=== PATIENT | male | born 1945 | race Caucasian/White ===

== ENCOUNTER 2025-05-29 17:36 | Inpatient (IN) | payer MEDICARE, OTHER, SELFPAY ==
--- OUTSIDE RECORDS SUMMARY | 2017-11-18 04:10 | XMS_ITS | Continuity of Care Document ---
Author Organization [facility] Address [address] [place] [address] Phone Care Team Providers Care Chief Of Internal Medicine Name Role Phone Art PT,MPT,ATC, Chip Unavailable Unavai lable Procedures Procedure Date Therapeutic Exercise Therapeutic Activities Therapeutic Exercise Therapeutic Exercise Therapeutic Activities Therapeutic Exercise Therapeutic Activities Therapeutic Exercise Therapeutic Activities Therapeutic Exercise Therapeutic Activities Therapeutic Exercise Therapeutic Activities Therapeutic Exercise Therapeutic Exercise Therapeutic Activities PT Evaluation High Complexity 8 Therapeutic Exercise Neuromuscular Re-Ed Advance Directives Directive Yes / No Effective Date File Name No Information Encounters Encounter Description Practice Location Reason(s) For Visit Diagnoses Date Provider Providers Copied on Encounter [facility], [place], [place], [id number], tel:[phone] [place] No Information 8 [place], [place]. [facility], [place], [place], [id number], tel:[phone] [place] No Information 8 [place], [place]. [facility], [place], [place], [id number], [place] tel:[phone] [place] No Information 8 [place]. , [place], [place]. [facility], [place], [place], [address], [place] tel:[phone] [place] No Information 8 [place], [place]. [facility], [place], [place], [address], [place] tel:[phone] [place] No Information 8 [place], [place]. [facility], [place], [place], [address], [place] tel:[phone] [place] No Information 8 [place], [place]. [facility], [place], [place], [address], [place] tel:[phone] [place] No Information 8 [place], [place]. [facility], [place], [place], [address], [place] tel:[phone] [place] No Information 8 [place], [place]. [facility], [place], [place], [address], [place] tel:[phone] [place] No Information 8 Art [place]. , [place], [place]. [facility], [place], [place], [address], [place] tel:[phone] [place] No Information 8 Art [place]. , [place], [place]. [facility], [place], [place], [address], [place] tel:[phone] [place] Presence of left artificial knee jointPain in left kneeStiffness of left knee, not elsewhere classifiedOth symptoms and signs involving the musculoskeletal system 8 Art [place], . Family History Family Member Type Diagnosis Age At Onset No Information Payers Payer name Insurance type Covered republican ID Authorricharda tiludmila(s) [facility] [id number] Social History Type Description Quantity Date Captured Comments Sex Male Smoking Status No Information Chief Complaint And Reason For Visit No Information Reason For Referral Reason For Referral No Information History Of Present Illness Encounter Date Complaint History Of Prese nt Illness No Information Functional Status Date Functional Assessmen t No Information Instructions Date Instruction Additional Infor mation No Information Assessments Type Assessment Date No Information Patient Care Teams Name Effective Dates (start - stop) Status Members No Information
[2025-05-29] VITALS (8 sets, daily range): BP systolic 113–159; BP diastolic 55–88; PULSE 68–88; RESP 16–20; TEMP 36.9–37.4; O2SAT 93–99; BMI 29.8
--- NOTE | ~2025-05-29 | CT_ITS ---
EXAMINATION: CT cervical spine wo con DATE: 05/29/2025 18:25 INDICATION: Status post fall. Altered mental status. TECHNIQUE: Computed tomography (CT) of the cervical spine was performed without intravenous contrast. The dose-length product was 544 mGy-cm. COMPARISON: None FINDINGS: Craniovertebral junction is normal. Odontoid process within normal limits. No evidence for perched facet. Spinous processes are normal. There is degenerative disc disease with narrowing of the disc space at C4-5, C5-6 and C6- 7. Lung apices are unremarkable. There is multilevel facet hypertrophy. No acute fracture or traumatic malalignment. There is carotid atherosclerosis. IMPRESSION: 1. No acute abnormality of the cervical spine. Reviewed, dictated and finalized at location A.
--- NOTE | ~2025-05-29 | US_ITS ---
EXAMINATION: US carotid duplex BI DATE: 05/29/2025 22:50 CDT INDICATION: Altered mental status TECHNIQUE: Grayscale, color Doppler, and pulsed Doppler images of the cervical carotid arteries were obtained. The degree of vessel stenosis is placed in one of the following categories: normal, <50%, 50-69%, >=70% but less than near-occlusion, near-occlusion, or total occlusion. Note that percent stenosis relative to normal distal artery lumen diameter is indirectly measured from velocity measurements as described originally by Lonnie, et al. Radiology 2003; 229:340-346 and updated by Jose Angel Hdz et al STROKE 2012;43(3);915-921. COMPARISON: None. FINDINGS: There is moderate atherosclerosis of both carotid arteries. Peak systolic velocity (in cm/s) is detailed below RIGHT: Right common carotid artery (CCA): 118 cm/s. Right internal carotid artery (ICA) PSV: 142 cm/s. Right ICA end-diastolic velocity (EDV): 23 cm/s. Right ICA/CCA PSV ratio is 1.2. Right external carotid artery (ECA): 173cm/s. There is antegrade flow in the right vertebral artery LEFT: Left common carotid artery (CCA): 114 cm/s. Left internal carotid artery (ICA) PSV: 92 cm/s. Left ICA end-diastolic velocity (EDV): 25 cm/s. Left ICA/CCA PSV ratio is 0.8. Left external carotid artery (ECA): 199cm/s. There is antegrade flow in the left vertebral artery. IMPRESSION: 1. 50-69% stenosis in the right internal carotid artery by peak systolic velocity criteria. 2. Less than 50% stenosis in the left internal carotid artery. Elevated peak systolic velocity within the external carotid arteries bilaterally Reviewed, dictated and finalized at location A. IMPRESSION: 1. 50-69% stenosis in the right internal carotid artery by peak systolic veloci ty criteria. 2. Less than 50% stenosis in the left internal carotid artery. Elevated peak systolic velocity within the external carotid arteries bilaterall y
--- NOTE | ~2025-05-29 | MR_ITS ---
EXAMINATION: MR brain/brain stem wo/w con DATE: 05/30/2025 13:58 INDICATION: Altered mental status TECHNIQUE: Magnetic resonance imaging (MRI) of the brain and brainstem was performed without and with 20 mL Multihance intravenous contrast. Sequences included sagittal and axial T1-weighted SE, axial diffusion-weighted FS SE, axial 3D SWAN, axial T2-weighted FLAIR, and axial T2-weighted FSE. Postcontrast axial and coronal T1-weighted SE was obtained. Apparent diffusion coefficient (ADC) maps were created. COMPARISON: Head CT dated 05/29/2025 FINDINGS: There are no areas of restricted diffusion to suggest acute infarction. No intracranial hemorrhage or abnormal intracranial mass lesion. There are scattered areas of nonspecific increased T2-weighted signal intensity in the cerebral white matter, predominantly involving the deep and periventricular whi te matter. There are no intraparenchymal signal abnormalities seen on the other pulse sequences. The ventricles are symmetric and normal in size. There are no abnormal extra-axial fluid collections. Flow voids are seen in the cerebral arteries on the T2-weighted sequences consistent with their expected patency. Visualized orbits and soft tissues are unremarkable. Mild mucosal thickening the bilateral ethmoid sinuses. Changes of intraocular lens replacement. There are no areas of abnormal enhancement on the post contrast images. IMPRESSION: 1. Normal aging brain with moderate scattered calcific white matter T2 hyperintensity consistent with chronic small vessel ischemic disease. No acute intracranial process or abnormally enhancing brain lesions. Reviewed, dictated and finalized at location A. IMPRESSION: 1. Normal aging brain with moderate scattered calcific white matter T2 hyperint ensity consistent with chronic small vessel ischemic disease. No acute intracra nial process or abnormally enhancing brain lesions.
--- NOTE | ~2025-05-29 | CT_ITS ---
EXAMINATION: CT lumbar spine wo con DATE: 05/29/2025 19:11 INDICATION: Low back pain after fall TECHNIQUE: Computed tomography (CT) of the lumbar spine was performed without intravenous contrast. The dose-length product was 1423.69 mGy-cm. Automated exposure control and iterative reconstruction technique were employed. COMPARISON: None FINDINGS: There is severe lumbar spondylosis. Vertebral body heights are maintained. No acute fracture or traumatic malalignment. Lung bases unremarkable. No significant pleural or pericardial effusion. No significant vascular abnormality. Colonic diverticulosis. Mild levocurvature of the lumbar spine. IMPRESSION: 1. No acute abnormality of the lumbar spine. 2: Severe lumbar spondylosis with levocurvature. Reviewed, dictated and finalized at location A.
--- NOTE | ~2025-05-29 | CT_ITS ---
EXAMINATION: CT brain wo con DATE: 05/29/2025 18:25 INDICATION: Status post fall. Altered mental status. TECHNIQUE: Computed tomography (CT) of the head was performed without intravenous contrast. The dose-length product was 756.67 mGy-cm. Automated exposure control and iterative reconstruction technique were employed. COMPARISON: None FINDINGS: Brain parenchymal volume normal for age. There are scattered mild periventricular and subcortical white matter changes, most likely related to small vessel ischemic disease (microangiopathy). No acute infarction, hemorrhage, mass or mass effect. No ventriculomegaly or midline shift. There is intracranial atherosclerosis. Paranasal sinuses and mastoids are pneumatized. No depressed skull fractures. IMPRESSION: 1. No acute intracranial abnormality. Reviewed, dictated and finalized at location A.
--- NOTE | 2025-05-29 17:45 | ECG_ITS ---
Test Date: 2025-05-29 19:59:01 Measurements Intervals Seminary Rate: 80 P: 0 NH: 0 QRS: 20 QRSD: 97 T: 34 QT: 383 QTc: 442 Interpretive Statements SINUS RHYTHM WTH FREQUENT ATRIAL PREMATURE COMPLEXES BORDERLINE AV CONDUCTION DELAY EARLY PRECORDIAL R/S TRANSITION NONSPECIFIC T-WAVE ABNORMALITY- DIFFUSE LEADS BASELINE ARTIFACT- I, II, III, AVR, AVL, AVF, V1, V4-V6 ABNORMAL ECG No previous ECG available for comparison Electronically Signed On 05-29-2025 21:33:47 CDT by Juanjose Marroquin D.O.
[2025-05-29 17:57] LABS: Hematocrit 42.1 % (42.0-52.0); Hemoglobin 14.1 g/dL (14.0-18.0); Immature Granulocyte Percent A 0.3 % (0-0.5); Lymphocytes Absolute Auto 0.64 K/mm3 (0.9-3.2); Mean Corpuscular HGB Conc 33.5 g/dl (32-36); Mean Corpuscular Hemoglobin 31.2 pg (26-34); Mean Corpuscular Volume 93.1 fl (80-100); Nucleated Red Blood Cells Absolute Auto 0.000 K/mm3 (0.0-0.012); Nucleated Red Blood Cells Perc 0.0 % (0.0-0.2); Platelet Count Result 224 k/mm3 (150-375); Red Blood Count 4.52 M/mm3 (4.6-6.20); White Blood Count 14.6 K/mm3 (4.5-10.0)
[2025-05-29 18:04] LABS: Add Urine Microscopic? YES; Appearance Urine Cloudy (Clear); Glucose Urine UA Negative (Negative); Leukocyte Esterase Ur Negative LEU/UL (Negative); Nitrate Urine Negative (Negative); Non Pathogenic Casts 0-2; Specific Grav Ur 1.022 (1.001-1.035)
[2025-05-29 18:06] LABS: Alanine Aminotransferase 19 U/L (6-50); Albumin Level 4.4 g/dL (3.5-5.1); Alkaline Phosphatase 71 U/L (38-126); Anion Gap 12 mmol/L (4-12); Aspartate Amino Transferase 33 U/L (17-59); Bilirubin,Total 0.7 mg/dL (0.2-1.3); Blood Urea Nitrogen 13 mg/dL (9-20); Calcium 9.4 mg/dL (8.4-10.2); Carbon Dioxide 20 mmol/L (22-30); Chloride 104 mmol/L (98-107); Estimated CRCL calculation 70 ml/min; Estimated Glomerular Filt Rate > 60; Glucose 109 mg/dL (65-110); Potassium 3.9 mmol/L (3.4-5.0); Sodium 136 mmol/L (137-145); Total Protein 7.2 g/dL (6.3-8.2)
[2025-05-29 18:10] LABS: INR 1.1; Partial Thromboplastin Time 29.0 Seconds (22.3-36.8); Prothrombin Time 14.2 Seconds (11.1-14.7)
[2025-05-29] MEDS: SODIUM CHLORIDE 0.9% IV 1,000 ML 999 ML (18:47)
[2025-05-29] MEDS: MORPHINE SULFATE (*CRX) 4 MG/ML INJ IV PUSH ×2 (18:49→19:32)
[2025-05-29] MEDS: SODIUM CHLORIDE 0.9% IV 1,000 ML 999 ML IV CONT (18:50)
--- OUTSIDE RECORDS SUMMARY | 2025-05-29 18:50 | XMS_ITS | Encounter Summary ---
Author Organization [facility] Address 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
--- OUTSIDE RECORDS SUMMARY | 2025-05-29 18:50 | XMS_ITS | Clinical Summary ---
Author Organization [facility] Address [address] [place] [address] Care Team Providers Care Footwear Factory Worker Name Role Phone Isac Lawrence MD Primary Care Provider [phone] Allergies No known active allergies Medications aspirin 81 mg enteric coated tablet Take 325 mg by mouth daily Active pseudoephedrine (SUDAFED) 30 mg tabletIndicatio ns:Nasal Congestion Take 1 tablet (30 mg total) by mouth every 4 (four) hours as needed for congestion Active triamcinolone (KENALOG) 0.1 % ointment Apply topically 2 (two) times a day as needed for irritation 80 g 4 Active Additional Information Patient not taking.Reported on 01/15/2025 traZODone (DESYREL) 100 mg tablet TAKE 1 TABLET BY MOUTH AT BEDTIME NEEDED FOR SLEEP 90 tablet 3 4 Active Active Problems Problem Noted Date Diagnosed Date Chronic midline low back pain without sciatica 0 06/20/2024 Assessment & Plan (06/20/2024 2:09 PM CDT): Continue to lose weight. Exudative age-related macula r degeneration of left eye with active choroidal neovascularization 08/03/2022 Assessment & Plan (04/26/2023 10:50 AM CDT): Eccentric CNVM status post (s/p) inj X 3, now fibrotic Continue to monitor Assessment & Plan (01/25/2023 11:41 AM CDT): Eccentric CNVM status post (s/p) inj X 3, doing well now fibrotic without heme Observe Assessment & Plan (11/16/2022 11:45 AM GUN CLUB MANAGER): PEHCR OS Today HARRISON 3rd of 3 (last 10/05/22) RTC 6 weeks DFE Assessment & Plan (08/03/2022 12:06 PM CDT): His peripheral choroidal neovascularization secondary to AMD. His lesion is largely fibrotic but there is an active component with subretinal hemorrhage. We discussed the options which include observation, anti VEGF pharmacotherapy or thermal laser. I concerns with thermal laser of the large size of the lesion as well as the concern for developing central cystoid macular edema are causing hemorrhaging from the neovascular complexes. 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 06/01/2022 Assessment & Plan (04/26/2023 10:54 AM CDT): Recommend AREDS/AG Assessment & Plan (11/16/2022 11:43 AM GUN CLUB MANAGER): AREDS, AG Assessment & Plan (08/03/2022 11:30 AM CDT): Amsler monitoring AREDS micronutrient supplementation after discussing with PCP Has sDD OU and discussed functional effects on Va such as dark adaptation issues Assessment & Plan (06/01/2022 10:56 AM CDT): Amsler monitoring AREDS micronutrient supplementation after discussing with PCP Has sDD OU and discussed functional effects on Va such as dark adaptation issues Epiretinal membrane (ERM) of both eyes 2 Assessment & Plan (04/26/2023 10:50 AM CDT): No metamorphopsia, ok to monitor Assessment & Plan (11/16/2022 11:46 AM GUN CLUB MANAGER): Stable, monitor Assessment & Plan (08/03/2022 11:30 AM CDT): No metamorphopsia, follow Assessment & Plan (06/01/2022 10:34 AM CDT): No metamorphopsia, follow Subretinal hemorrhage of left eye 06/01/2022 Assessment & Plan (04/26/2023 11:06 AM CDT): Resolved heme (H)/o antiVEGF left eye (OS) for superior rectus (SR) fibrosis peripherally, no active lesions Discussed that he does not have active CNV; can follow with Dr De La Paz or local eye doctor Assessment & Plan (01/25/2023 11:41 AM CDT): Resolved OS Assessment & Plan (08/03/2022 11:35 AM CDT): Pt w/ peripheral subretinal hemorrhage (SRH). fluorescein angiography (FA) today shows neovascularization in this location. Given presence of macular degeneration and inconsistency w/ choroidal mass on previous B-scan, this may represent a PECHR picture. Though peripheral, given signs of activity, can consider anti-vegf left eye (OS) Assessment & Plan (06/01/2022 10:57 AM CDT): B scan and fundus features inconsistent with choroidal mass extensive peripheral drusen OU With active new heme on fundus exam but peripheral, can monitor with serial optos photos, can trial antiVEGF if enlarges. We have discussed that some patients with macular degeneration can get peripheral choroidal neovascularization. Fortunately he is showing some features of regression such as fibrosis within the lesion and the hemoglobin is a hernandez of some of the subretinal hemorrhage. As such, we can continue to monitor and only do anti VEGF pharmacotherapy if the lesion shows active components Encounter for screening colonoscopy 08/20/2020 Overview (08/20/2020): Added automatically from request for surgery [id number] Insomnia 07/09/2020 Assessment & Plan (06/20/2024 2:09 PM CDT): Stable on medications. History of colon polyps 07/09/2020 Hearing loss 01/30/2018 History of total knee replacement 11/29/2017 Ventricular premature beats 07/26/2016 Cerumen impaction 09/04/2013 Knee pain 05/10/2012 Encounters Date Type Department Care Team Description 05/14/2025 Telephone [facility] [address] [address] Isac Lawrence MD Hearing Loss from Last 3 Months Immunizations Immunization Administration Dates Next Due Hep A, Adult 03/16/2016 Surgical History Surgery Date Site/Laterality Comments REPLACEMENT TOTAL KNEE Left TONSILLECTOMY/ADENOIDECTOMY Medical History Medical History Date Comments Sleep difficulties Colon polyp Arthritis Family History Medical History Relation Name Comments Alcohol abuse Brother Family history of alcoholism - (Added by TW Conv) Coronary artery disease Father Heart attack Father Family history of myocardial infarction - (Added by TW Conv) Heart disease Father Family history of cardiac disorder - (Added by TW Conv) Heart failure Father Sudden Cardiac Father Arthritis Mother Family history of arthritis - (Added by TW Conv) Breast cancer Mother Cancer Mother Family history of malignant neoplasm - (Added by TW Conv) Relation Name Status Comments Brother Father Mother Social History Tobacco Use Types Packs/Day Years Used Date Smoking Tobacco: Never Smokeless Tobacco: Never Tobacco Cessation:Counseling Given: Not Answered Alcohol Use Standard Drinks/Week Comments Yes 21 (1 standard drink = 0.6 oz pu re alcohol) AUDIT-C Answer Date Recorded Q1: How often do you have a drink containing alc ohol? Never 10/14/2020 Average Number of Drinks Not on file 021 Frequency of Binge Drinking Not on file 02/2021 PHQ-2 Answer Date Recorded PHQ-2 Total Score (If total score is 3 or more points, staff should administer the PHQ-9) 0 12/19/2024 Sex and Gender Information Value Date Recorded Sex Assigned at Not on file Legal Sex Male 5:35 AM GUN CLUB MANAGER Gender Identity Not on file Sexual Orientation Not on file Obstetrics History Last Filed Vital Signs Vital Sign Reading Time Taken Comments Blood Pressure 122/84 01/15/2025 2:08 PM CDT Pulse 46 01/15/2025 2:08 PM CDT Temperature 36.1 C (96.9 F) 01/15/2025 2:08 PM CDT Respiratory Rate 20 01/15/2025 2:08 PM CDT Oxygen Saturation 96% 01/15/2025 2:08 PM CDT Inhaled Oxygen Concentration - - Weight 110.7 kg (244 lb) 01/15/2025 2:08 PM CDT Height 185.4 cm (6' 1) 01/15/2025 2:08 PM CDT Body Mass Index 32.19 01/15/2025 2:08 PM CDT Plan of Treatment Health Maintenance Due Date Last Done Comments DTaP/Tdap/Td Vaccine (1 - Tdap) 1958 Hepatitis B Screening 1965 Pneumococcal vaccine 65+ (1 of 1 - PCV) 1997 Zoster Vaccine (1 of 2) 1997 Influenza Vaccine (#1) 2025 Depression Screening 12/19/2025 12/19/2024, 07/07/20 21 Fall Risk Assessment 12/19/2025 12/19/2024, 07/07/2021, 10/14/2020 Well Visit 65+ 12/19/2025 12/19/2024, 10/11, 07/07/2021, Additional history exists Colon Cancer Screening-CT Colonography Discontinued 10/14/2020, 06/24/2015 Colon Cancer Screening-Colonoscopy Discontinued 10/14/2020, 06/24/2015 Colon Cancer Screening-DNA Stool Discontinued 10/14/19 21, 06/24/2015 Colon Cancer Screening-FIT Discontinued 10/14/2020, Colon Cancer Screening-FOBT Discontinued 10/14/2020, 0 06/24/2015 Colon Cancer Screening-Sigmoidoscopy Discontinued 10/14/2020, 06/24/2015 Colorectal Cancer Screening Discontinued Hepatitis C Screening Completed 12/14/2023 Procedures Procedure Name Priority Date/Time Associated Diagnosis Comments HEPATITIS C ANTIBODY Routine 12/14/2023 2:55 PM GUN CLUB MANAGER Chronic pain of both knees Obesity (BMI 30.0-34.9) Screening for prostate cancer Encounter for hepatitis C screening test for low risk patient COLONOSCOPY 10/14/2020 12:52 PM GUN CLUB MANAGER from Last 3 Months or Most Recently Relevant to Health Maintenance Results * Hepatitis C antibody Blood (12/14/2023 2:55 PM GUN CLUB MANAGER) Hep C Ab Non Reactive Non Reactive [facility] - 01 Comment: HCV antibody alone does not differentiate between previously resolved infection and active infection. Equivocal and Reactive HCV antibody results should be followed up with an HCV RNA test to support the diagnosis of active HCV infection. Blood 12/14/2023 2:55 PM GUN CLUB MANAGER 12/14/2023 Narrative [facility] - 12/15/2023 9:13 AM GUN CLUB MANAGER Performed at: [address] [id number] Card Tender: Ricci Smith PhD, Phone: [phone] us Isac Lawrence MD LAB MICROBIOLOGY - GENERAL OR DERABLES Final Result [facility] - * COLONOSCOPY (10/14/2020 12:52 PM GUN CLUB MANAGER) Anatomical Region Laterality Modality Other Narrative Procedure Note Brennan Canada MD PhD - 10/14/2020 12:52 PM [facility] Patient Name: Nick Vargas Procedure Date: 10/14/2020 12:52 PM Date of : 1945 Admit Type: Outpatient Age: 75 Gender: Male Attending MD: Brennan Canada MD,PHD Room: [facility] ENDOSCOPY ROOM 8 Note Status: Finalized Procedure: Colonoscopy Indications: High risk colon cancer surveillance: Personalhistory of colonic polyps, Last colonoscopy: June2015 Referring MD: Isac Lawrence M.D. Providers: Brennan Canada MD, PHD Medicines: Monitored Anesthesia Care Complications: No immediate complications. Estimated Blood Loss: Estimated blood loss: none. Procedure: Pre-Anesthesia Assessment: - Immediately prior to administration ofmedications, the patient was re-assessed for adequacy to receive sedatives. - The risks and benefits of the procedure and the sedation options and risks were discussed with the patient. All questions were answered and informed consent was obtained. The benefits, risks and alternatives of theprocedure and sedation were discussed and informed consent was obtained. All questions were answered. Please referto the signed informed consent document in the medical record. The scope was passed under direct vision.The CF [id number] endoscope was introduced throughthe anus and advanced to the cecum, identified by appendiceal orifice and ileocecal valve. The colonoscopy was performed without difficulty. The patient tolerated the procedure well. The quality of the bowel preparation was excellent. The quality ofthe bowel preparation was evaluated using the BBPS([place] Bowel Preparation Scale) with scores of: Right Colon= 3, Transverse Colon = 3 and Left Colon = 3 (entire mucosa seen well with no residual staining, small fragments of stool or opaque liquid). The total BBPS score equals 9. The bowel preparation used was polyethylene glycol (PEG). Bowel prep wasadministered using a split dose. Findings: The perianal and digital rectal examinations were normal. Multiple small and large-mouthed diverticula were found from cecum to sigmoid colon. The exam was otherwise without abnormality on direct and retroflexion views. Impression: - Diverticulosis from cecum to sigmoid colon. - The examination was otherwise normal on direct and retroflexion views. Recommendation: - High fiber diet. - Repeat colonoscopy in 10 years for surveillance. Attending Participation: I personally performed the entire procedure. Electronically signed by Brennan Canada MD. Brennan Canada MD, PHD 10/14/2020 1:34:18 PM Number of Addenda: 0 Note Initiated On: 10/14/2020 12:52 PM Recognized by the [employer] for promoting quality in endoscopy Brennan Canada MD PhD ENDOSCOPY PROCEDURES Mellissa l Result from Last 3 Months or Most Recently Relevant to Health Maintenance Insurance MEDICARE [facility] MEDICARE [facility] SUPPLEMENT [place] [id number] MEDICARE [facility] SUPPLEMENT [place] [id number] [facility] HMO/PPO Address: [address] [facility] [address] [place] [address] MEDICARE [facility] Address: [address] [address] [place] [address] [facility] H[facility]/PPO Address: [address] [address] Advance Directives For more information, please contact: [phone] * Full Code (Latest Code Status on File) Date Activated Date Inactivated Comments 10/14/2020 11:56 AM 10/14/2020 6:26 PM Care Teams Footwear Factory Worker Relationship Specialty Start Date End Date Isac Lawrence MD PCP - General Internal Medicine 03/23/21
[2025-05-29 18:51] LABS: Creatine Kinase 364 U/L (55-170)
[2025-05-29 18:53] LABS: Influenza A QL RT-PCR Negative (Negative); Influenza B QL RT-PCR Negative (Negative); RSV RNA, RT-PCR Negative (Negative); SARS-CoV-2 RNA PCR Negative (Negative)
--- NOTE | 2025-05-29 19:45 | ED.AMS ---
HPI - Altered Mental Status General Chief Complaint: Altered Mental Status Stated Complaint: fall - altered mental status Time Seen by Provider: 05/29/25 18:25 Source: patient and family Mode of arrival: EMS Limitations: no limitations History of Present Illness HPI narrative: 80-year-old with a history of alcoholism was brought in from home by EMS with the complaints of fall. Son who is at the bedside states that he was fine yesterday phone number this afternoon on the floor. Patient states he has been on the floor for more than 12 hours. He also stated that he is extremely weak in his lower legs that he could not get up. He denies any headache or chest pain or shortness of breath. Complains of pain all over the body. MD complaint: altered mental status Timing confirmed by: family member Severity: moderate Context: alcohol abuse Associated symptoms: denies other symptoms Related Data Allergies Allergy/AdvReac Type Severity Reaction Status Date / Time No Known Allergies Allergy Verified 05/29/25 17:41 Review of Systems Review of Systems: All systems reviewed & are unremarkable except as noted in HPI and below Constitutional: Constitutional: Reports no additional constitutional complaints Eyes: Eyes: Reports no additional eye complaints ENT: Reports system reviewed and no additional complaints, except as documented Cardiovascular: Cardiovascular: Reports no additional cardiovascular complaints Respiratory: Respiratory: Reports no additional respiratory complaints Gastrointestinal: Gastrointestinal: Reports no additional gastrointestinal complaints Musculoskeletal: Musculoskeletal: Reports as per HPI Integumentary/Breasts: Skin/Breast: Reports system reviewed and no additional complaints, except as docu Neurologic: Reports as per HPI Exam Narrative: GENERAL: Well-appearing, well-nourished, constantly screaming stating he is in pain HEAD: Normocephalic, atraumatic. EYES: PERRLA and EOMI. ENT: Nares clear, no rhinorrhea or epistaxis. Mucous membranes moist. NECK: Supple. CHEST: Clear to auscultation. No respiratory distress. HEART: Regular rate and rhythm. No murmur heard. Normal peripheral pulses. ABDOMEN: Soft, nontender, nondistended, normal active bowel sounds. EXTREMITIES: Normal range of motion. No edema. SKIN: Warm, dry, no rash. NEURO: No focal deficits. Alert and oriented x3. PSYCH: Normal mood and affect. Course Course Emergency Course: Patient's ex- is she is thinks is more confused. I did discuss all work, CT findings with the patient and his ex- who is at the bedside. We will admit him to the hospital. Discussed with the hospitalist will accept the pt. Vital Signs Vital signs: Vital Signs Temperature 36.9 C 05/29/25 17:32 Pulse Rate 88 05/29/25 17:32 Respiratory Rate 16 05/29/25 17:32 Blood Pressure 154/88 H 05/29/25 17:32 Pulse Oximetry 97 05/29/25 17:32 Temperature 36.9 C 05/29/25 17:32 Pulse Rate 88 05/29/25 17:32 Respiratory Rate 16 05/29/25 17:32 Blood Pressure 154/88 H 05/29/25 17:32 Pulse Oximetry 97 05/29/25 17:32 MDM - Altered Mental Status Differential Diagnosis Differential diagnosis: Likely alcoholic intoxication, dementia, hyponatremia and other (Rhabdomyolysis, alcohol withdrawal) Lab Data Attestation: I reviewed the patient's lab results. 05/29/25 17:48 05/29/25 17:48 Labs: Lab Results 05/29/25 05/29/25 05/29/25 Range/Units 17:48 18:10 18:32 WBC 14.6 H (4.5-10.0) K/mm3 RBC 4.52 L (4.6-6.20) M/mm3 Hgb 14.1 (14.0-18.0) g/dL Hct 42.1 (42.0-52.0) % MCV 93.1 (80-100) fl MCH 31.2 (26-34) pg MCHC 33.5 (32-36) g/dl RDW 13.9 (11.5-14.5) % Plt Count 224 (150-375) k/mm3 MPV 9.7 (7.4-10.4) fl Immature Gran % (Auto) 0.3 (0-0.5) % Neut % (Auto) 89.9 H (45.5-73.1) % Lymph % (Auto) 4.4 L (18.3-44.2) % [place] % (Auto) 5.3 (2.6-8.5) % Eos % (Auto) 0.0 (0-4.4) % Baso % (Auto) 0.1 L (0.2-1.2) % Lymph # (Auto) 0.64 L (0.9-3.2) K/mm3 [place] # (Auto) 0.8 H (0.1-0.6) K/mm3 Eos # (Auto) 0.0 (0-0.3) K/mm3 Baso # (Auto) 0.0 (0.0-0.1) K/mm3 Abs Immat Gran (auto) 0.05 H (0.00-0.031) K/mm3 Absolute Neuts (auto) 13.2 H (1.3-6.7) K/mm3 Absolute Nucleated RBC 0.000 (0.0-0.012) K/mm3 Nucleated RBC % 0.0 (0.0-0.2) % PT 14.2 (11.1-14.7) Seconds INR 1.1 APTT 29.0 (22.3-36.8) Seconds Sodium 136 L (137-145) mmol/L Potassium 3.9 (3.4-5.0) mmol/L Chloride 104 (98-107) mmol/L Carbon Dioxide 20 L (22-30) mmol/L Anion Gap 12 (4-12) mmol/L BUN 13 (9-20) mg/dL Creatinine 0.88 (0.7-1.3) mg/dL Estim Creat Clear Calc 70 ml/min Estimated GFR > 60 (59 - ) Glucose 109 (65-110) mg/dL Lactic Acid 1.2 (0.7-2.0) mmol/L Calcium 9.4 (8.4-10.2) mg/dL Total Bilirubin 0.7 (0.2-1.3) mg/dL AST 33 (17-59) U/L ALT 19 (6-50) U/L Alkaline Phosphatase 71 (38-126) U/L Total Creatine Kinase 364 H (55-170) U/L Total Protein 7.2 (6.3-8.2) g/dL Albumin 4.4 (3.5-5.1) g/dL Urine Color Yellow (Yellow) Urine Appearance Cloudy H (Clear) Urine pH 5.0 (5.0-9.0) Ur Specific [place] 1.022 (1.001-1.035) Urine Protein 1+ H (Negative) mg/dL Urine Glucose (UA) Negative (Negative) mg/dL Urine Ketones 3+ H (Negative) mg/dL Ur Blood (Man) Negative (Negative) Urine Nitrate Negative (Negative) Urine Bilirubin Negative (Negative) Urine Urobilinogen 0.2 (<2.0) mg/dL Leukocyte Esterase Rfl Negative (Negative) THERESA/UL Urine RBC 0-2 (0-2) /hpf Urine WBC 0-5 (0-3) /hpf Ur Squamous Epith Cells None seen (Few) /hpf Urine Bacteria None seen /hpf Urine Casts 0-2 Ethyl Alcohol < 10 (<10) mg/dL Influenza A (RT-PCR) Negative (Negative) Influenza B (RT-PCR) Negative (Negative) RSV (RT-PCR) Negative (Negative) SARS-CoV-2 RNA (RT-PCR) Negative (Negative) Imaging Data Radiologist's impression: ITS Impressions Head CT 05/29/25 18:29 IMPRESSION: 1. No acute intracranial abnormality. Cervical Spine CT 05/29/25 18:31 IMPRESSION: 1. No acute abnormality of the cervical spine. Lumbar Spine CT 05/29/25 19:13 IMPRESSION: 1. No acute abnormality of the lumbar spine. 2: Severe lumbar spondylosis with levocurvature. ECG Data EKG #1: ECG completion date: 05/29/25 ECG completion time: 19:59 EKG Interpretation: normal rate (80), atrial fibrillation, no ectopy, normal QRS and NL axis Discharge Plan Discharge Clinical Impression: Altered mental status, Fall, Alcohol withdrawal Patient Disposition: Still a Patient Condition: Stable Patient Language: Kazakh Follow-up/Referrals: UNKNOWN,DOCTOR [Primary Care Provider] Time of Disposition: 19:53
[2025-05-29] MEDS: LORazepam INJ (*CRX) 2 MG/ML VIAL 1 MG IV PUSH (19:54)
[2025-05-29 20:18] LABS: Ammonia < 9 umol/L (9-30)
--- NOTE | 2025-05-29 20:58 | P.HP_ITS ---
H&P: HPI History of Present Illness Date/Time: 05/29/25 20:58 Chief Complaint: AMS Narrative: This is a confused 72-year-old male patient with no known past medical history according to patient's ex- who is bedside and deemed to be the most reliable source of information the room. Patient was wounds today by his son at home. Patient has unreliable information stating he has been there 15 hours when at th e time of my assessment it had not been 12 hours since the reported time of fall. Patient states his legs slipped on something and that is what caused him to fall. Patient does is a chronic history of alcohol use daily and he does admit to drinking last night. Patient answers orientation questions correctly but then mentors off in his conversation to nonsensical answers such as when asking his current medications he replies ?COVID.He then goes talking attention regarding pain. He is unable to give any reliable information at this time. Workup in the ER was performed and CBC notable for leukocytosis of 14.6. Preserved H&H 14 point signs remained within platelets of 224. Metabolic panel showing sodium 136, potassium 3 point, 1 4, CO2 20, creatinine BUN 0.8 he was 13 is working physical known. Components are normal. Lactic acid is 1.2, CK is 364 patient is +ketones in his urine. Patient is not in for rhabdomyolysis. CT of the head was negative for any acute abnormalities, CT of C-spine and CT lumbar spine negative for any acute findings but does show chronic spondylosis. Alcohol level was also normal. EKG showing atrial fibrillation 80 beats per minute. There is no known history of previous AFib. Currently rate controlled. It is unclear what is causing patient's acute altered mental status that he is noted to be having short, frequent outbursts yelling, AH! At times the noise is much like a Tic and a dog bark sound. He reports that he has pain all over his body. He is noted to be moving all extremities fully and equally without any deficits. Review of Systems Review of Systems: ROS unobtainable: Yes unobtainable due to medical condition PMFSH Past Medical History Medical History Chronic pain Alcohol abuse New onset a-fib Meds Home Medications and Allergies Allergies Allergy/AdvReac Type Severity Reaction Status Date / Time No Known Allergies Allergy Verified 05/29/25 17:41 Vital Signs Vital Signs - 24 hr 05/29/25 17:32 Temperature 98.4 F Pulse Rate 88 Respiratory Rate 16 Blood Pressure 154/88 H Pulse Oximetry 97 Exam Const: General: uncomfortable Other: Elderly male patient lying supine at this time and complaining of pain all over. HENMT: Face/Nose/Sinus: Normal nares present Mouth: Yes dry mucous membranes Eyes: General: appearance normal, both eyes and all related structures Sclera: sclerae normal Pupils: Equal, round and reactive pupils present EOM: EOMs intact bilaterally Neck: Neck: supple and no JVD Lymphatic: lymphadenopathy not noted Resp: Effort & Inspection: abnormal respiratory effort (Diminished effort, will not follow commands) Auscultation: diminished lung sounds bilateral (Bases) Cardio: Rate: regular rate Rhythm: regular rhythm Heart sounds: no gallops, no murmurs and no rubs GI: GI Palp: Yes Soft to palpation and No Tenderness to palpation present (GI) Auscultation: normal bowel sounds Skin: General skin exam: normal color, no rashes or lesions noted and no erythema Wounds: no wounds Neuro: Speech: normal speech Motor exam (neuro): Abnormal motor strength present (Generalized, nonfocal weakness) Sensory Exam: normal sensation Extrem: General: normal to inspection, no edema and no pedal edema Other: Freely and equally moving all extremities well without deficit. Psych: Mental Status: mental status grossly abnormal (AMS - Answers orientation questions correctly then confused.) Affect: No normal affect and Anxious affect present Other: Pt's conversations trail off and at times are nonsensical. H&P: Results Labs Labs: Short CBC 05/29/25 Range/Units 17:48 WBC 14.6 H (4.5-10.0) K/mm3 Hgb 14.1 (14.0-18.0) g/dL Hct 42.1 (42.0-52.0) % Plt Count 224 (150-375) k/mm3 BMP 05/29/25 17:48 Sodium 136 L Potassium 3.9 Chloride 104 Carbon Dioxide 20 L BUN 13 Creatinine 0.88 Glucose 109 Calcium 9.4 Cardiac Enzymes 05/29/25 Range/Units 17:48 Total Creatine Kinase 364 H (55-170) U/L Liver Function 08/20/25 Range/Units 17:48 Total Bilirubin 0.7 (0.2-1.3) mg/dL AST 33 (17-59) U/L ALT 19 (6-50) U/L Alkaline Phosphatase 71 (38-126) U/L Albumin 4.4 (3.5-5.1) g/dL Urine 05/29/25 Range/Units 17:48 Urine Color Yellow (Yellow) Urine Appearance Cloudy H (Clear) Urine pH 5.0 (5.0-9.0) Ur Specific [place] 1.022 (1.001-1.035) Urine Protein 1+ H (Negative) mg/dL Urine Glucose (UA) Negative (Negative) mg/dL Assessment and Plan Assessment and plan (1) New onset a-fib: Code(s): I48.91 - Unspecified atrial fibrillation Status: Acute Assessment and Plan: * Currently rate controlled according to EKG that was independently reviewed by myself. * Telemetry * Consult cardiology * Check ECHO * daily labs * Start Lovenox 40 mg SC Daily * Check Thyroid function (2) Fall: Qualifiers: Encounter type: initial encounter Qualified Code(s): W19.XXXA - Unspecified fall, initial encounter Code(s): W19.XXXA - Unspecified fall, initial encounter Status: Acute Assessment and Plan: * Found down on floor, unknown length of time * CK 364 continue overt rhabdomyolysis * Continue to hydrate with normal saline at 125 mL/hour * Fall precautions * Imaging of CT head, CT C-spine and CT L-spine without acute abnormalities. Spondylosis identified on CT lumbar spine. (3) Altered mental status: Qualifiers: Altered mental status type: unspecified Qualified Code(s): R41.82 - Altered mental status, unspecified Code(s): R41.82 - Altered mental status, unspecified Status: Acute Assessment and Plan: * Etiology uncertain -Wernicke's encephalopathy (??) * Fall precautions * Check B1 and B12 levels * Start daily thiamine and folic acid * Consult Neurology * MR Brain and Brainstem with and without * Carotid dopplers * ECHO ordered * Check thyroid function * PRN Ativan (4) Alcohol abuse: Code(s): F10.10 - Alcohol abuse, uncomplicated Status: Chronic Assessment and Plan: * CIWA scoring, * PRN Ativan * Fall Precautions * Normal ETOH level (5) Chronic pain: Code(s): G89.29 - Other chronic pain Status: Chronic Assessment and Plan: * Morphine 2 mg Q2 hrs ordered for chronic pain. Quality VTE Prophylaxis VTE prophylaxis: pharmacologic ordered Hospitalist MIPS Advance Care Plan I have confirmed that the patient's Advanced Care Plan is present, code status is documented, or surrogate decision maker is listed in patient medical record.: Yes Medication Reconciliation I have utilized all available resources to obtain, update and review the patients current medications (includes all prescriptions, OTC, herbals, cannabis, and nutritional supplements).: Yes
--- NOTE | 2025-05-29 22:17 | ADMGEN ---
This patient, Nick Vargas, was admitted to IMU Room 206-01. Patient/family oriented to hospital policies and general routines including ID bracelet, bed and alarms, visiting hours, pain management, procedures, bathroom and other care routines, personal items, smoking policy, room service/diet, and visiting hours. Information on how to activate the Rapid Response Team has been discussed. Patient/Family are encouraged to report perceived risks to care and to ask questions if they do not understand what they are told or what they should do.
[2025-05-29 22:32] LABS: Vitamin B12 256.0 pg/mL (239-931)
[2025-05-29] MEDS: SODIUM CHLORIDE 0.9% IV 1,000 ML 125 ML IV CONT (22:39)
[2025-05-29] MEDS: ENOXAPARIN 40 MG/0.4 ML SYRINGE SUB-Q (22:40)
[2025-05-29] MEDS: MORPHINE SULFATE (*CRX) 2 MG/ML INJ IV PUSH (23:20)
[2025-05-30] VITALS (16 sets, daily range): BP systolic 103–135; BP diastolic 50–70; PULSE 43–99; RESP 16–20; TEMP 35.9–36.8; O2SAT 93–96
--- NOTE | 2025-05-30 | ECHO_ITS ---
Patient Info Name: Nick Vargas Age: 80 years : 1945 Gender: Male Ht: 74 in Wt: 230 lbs BSA: 2.35 m2 BP: 103 / 70 mmHg Technical Quality: Poor Exam Date: 05/30/2025 9:34 AM Patient Status: I Admit Date: 05/29/2025 Exam Type: CA echo dop color flow w con Complete two-dimensional, color flow and Doppler transthoracic echocardiogram is performed with contrast to opacify the left ventricle and to improve the deliniation of the left ventricle endocardial borders. Staff Referring Physician: Phyllis Arevalo Electrician Rectifier Maintenance: Chaya Dye Attending Provider: Dayton Branham Contrast/Agitated Saline Contrast/Ag. Saline: Definity Amount: 2.00 ml Administered By: Chaya Dye Reason for Poor Study: poor echocardiographic windows Summary 1. Left ventricular systolic function is normal, estimated at 60-65. 2. Left atrial chamber dimension is normal. Left Ventricle Left ventricular chamber dimension is normal. Left ventricular systolic function is normal, estimated at 60-65. There is no increased left ventricular wall thickness. Left ventricular septal wall motion is normal. The left ventricular diastolic function is indeterminate. Right Ventricle Right ventricular chamber dimension is normal. Right ventricular systolic function is normal. Left Atria Left atrial chamber dimension is normal. Right Atria Right atrial chamber dimension is normal. Aortic Valve The aortic valve is trileaflet. There is no aortic valve sclerosis. There is no aortic valve stenosis. There is no aortic valve regurgitation. There is mild aortic valve calcification. Pulmonic Valve The pulmonic valve is normal. There is no pulmonic valve stenosis. There is no pulmonic regurgitation. Mitral Valve The mitral valve has normal leaflets. There is no mitral valve stenosis. There is no mitral valve regurgitation. Tricuspid Valve The tricuspid valve leaflets are normal. There is no significant tricuspid valve stenosis. There is no tricuspid valve regurgitation. Pericardium/Pleural The pericardium appears normal. There is no pericardial effusion. Inferior Vena Cava Normal inferior vena cava with >50% collapse upon inspiration consistent with normal right atrial pressure, 5 mmHg. Aorta The aortic root size at the sinus of Valsalva is normal. The prox ascending aorta size is normal. Left Ventricular Outflow Tract Name Value Normal LVOT 2D LVOT Diameter 2.0 cm LVOT Doppler LVOT Peak Velocity 132 cm/s LVOT Peak Gradient 6 mmHg LVOT Mean Gradient 3 mmHg LVOT VTI 33 cm LVOT VTI/AV VTI Ratio 0.7 LVOT Stroke Volume 108 ml LVOT CO 4.1 l/min LVOT CI 1.7 l/min/m2 Pulmonic Valve Name Value Normal RVOT Doppler RVOT Peak Velocity 60 cm/s RVOT Peak Gradient 1 mmHg PV Doppler PV Peak Velocity 77 cm/s PV Peak Gradient 2 mmHg Mitral Valve Name Value Normal MV Diastolic Function MV E Peak Velocity 71 cm/s MV A Peak Velocity 70 cm/s MV E/A 1.0 MV Decel Time (PW) 244 ms MV Annular TDI MV E/e' (Septal) 8.4 MV E/e' (Lateral) 6.3 MV E/e' (Average) 7.4 Tricuspid Valve Name Value Normal Estimated PAP/RSVP RA Pressure 5 mmHg <=5 TV Annular TDI TV Lateral Ena s' Velocity 12.2 cm/s >=9.5 Aortic Valve Name Value Normal AV Doppler AV Peak Velocity 195 cm/s AV Peak Gradient 15 mmHg AV Mean Gradient 8 mmHg AV VTI 47 cm AV Area (Cont Eq VTI) 2.3 cm2 >=3.0 AV Area (Cont Eq Carmine) 2.2 cm2 AV DI (Carmine) 0.68 AV Regurgitation 2D LVOT Area 3.3 cm2 Ventricles Name Value Normal LV Dimensions 2D/MM LVOT Diameter 2.0 cm LV Fractional Shortening/Ejection Fraction 2D/MM LV Diastolic Volume (4C MOD) 146 ml LV EF (4C MOD) 51 % LV Diastolic Volume (2C MOD) 106 ml LV EF (2C MOD) 48 % LV Diastolic Volume (BP MOD) 133 ml 62-150 LV Diastolic Volume Index (BP MOD) 56 ml/m2 34-74 LV Systolic Volume (BP MOD) 64 ml 21-61 LV Systolic Volume Index (BP MOD) 27 ml/m2 11-31 LV EF (BP MOD) 52 % 52-72 LV Diastolic Length (4C) 9.1 cm LV Systolic Length (4C) 7.7 cm LV Stroke Volume (4C MOD) 75 ml Atria Name Value Normal LA Dimensions LA Volume (4C A-L) 74 ml LA Volume (BP A-L) 84 ml RA Dimensions RA Systolic Major [place] Length (4C) 5.6 cm 2.1-2.7 RA Area (4C) 18.3 cm2 <=18.0 Report Signatures
[2025-05-30 04:00] LABS: Hematocrit 37.0 % (42.0-52.0); Hemoglobin 12.3 g/dL (14.0-18.0); Immature Granulocyte Percent A 0.3 % (0-0.5); Lymphocytes Absolute Auto 1.09 K/mm3 (0.9-3.2); Mean Corpuscular HGB Conc 33.2 g/dl (32-36); Mean Corpuscular Hemoglobin 31.6 pg (26-34); Mean Corpuscular Volume 95.1 fl (80-100); Nucleated Red Blood Cells Absolute Auto 0.000 K/mm3 (0.0-0.012); Nucleated Red Blood Cells Perc 0.0 % (0.0-0.2); Platelet Count Result 182 k/mm3 (150-375); Red Blood Count 3.89 M/mm3 (4.6-6.20); White Blood Count 10.4 K/mm3 (4.5-10.0)
[2025-05-30 04:34] LABS: Alanine Aminotransferase 15 U/L (6-50); Albumin Level 3.3 g/dL (3.5-5.1); Alkaline Phosphatase 52 U/L (38-126); Anion Gap 7 mmol/L (4-12); Aspartate Amino Transferase 40 U/L (17-59); Bilirubin,Total 0.7 mg/dL (0.2-1.3); Blood Urea Nitrogen 10 mg/dL (9-20); Calcium 8.3 mg/dL (8.4-10.2); Carbon Dioxide 20 mmol/L (22-30); Chloride 108 mmol/L (98-107); Estimated CRCL calculation 78 ml/min; Estimated Glomerular Filt Rate > 60; Glucose 83 mg/dL (65-110); Lipase 29 U/L (23-300); Magnesium 2.1 mg/dL (1.6-2.3); Potassium 3.4 mmol/L (3.4-5.0); Sodium 135 mmol/L (137-145); Total Protein 5.7 g/dL (6.3-8.2)
[2025-05-30 05:04] LABS: Thyroid Stimulating Hormone Reflex 1.750 uIU/mL (0.465-4.68)
[2025-05-30] MEDS: SODIUM CHLORIDE 0.9% IV 1,000 ML 125 ML IV CONT (06:39)
[2025-05-30] MEDS: FOLIC ACID 1 MG TABLET PO (11:11)
[2025-05-30] MEDS: THIAMINE HCL 100 MG TABLET PO (11:11)
--- NOTE | 2025-05-30 12:12 | P.CONNEU_ITS ---
Assessment and Plan Assessment and plan (1) Fall: Qualifiers: Encounter type: initial encounter Qualified Code(s): W19.XXXA - Unspecified fall, initial encounter Code(s): W19.XXXA - Unspecified fall, initial encounter Status: Acute Plan The reason for his fall and inability to get up is not entirely clear. neurologic examination does not reveal any evidence for alcohol withdrawal although there is a history of alcohol use disorder. His CT scan of brain did not show any significant abnormalities. I reviewed the films and agree with the findings. His EKG shows regular sinus rhythm with ectopic beats. He was suspected of having atrial fibrillation but I believe still awaiting the confirmation. His carotid Doppler study shows 50-69% narrowing in the right internal carotid artery and under 50% the left internal carotid artery. His vitamin B12 was towards the lower end of the normal at 2:56 a.m.. Liver enzymes and renal function were also normal. Hemoglobin was low at 12.3 today was 14.1 yesterday at the time of admission. The patient states that he does not know why he was not able to help himself get up. There is no history of any other drug abuse. I would suggest an MRI of the brain and EEG and continue to observe and ask physical therapy and occupation therapy to check his gait and ambulation. We can give her injection of B12 1000 mcg. 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 Patient states that he did not pass out but he could not help himself out from the floor and he laid there for 12 hours. His alcohol level was less than 10 or essentially 0 when he arrived but there is a history of alcohol use disorder. He states that he has a twin sons also sometimes his ex- comes around. His ex- is also here when he came to the hospital. Patient lives by himself and hence we do not have any eyewitness account of the same. According to the admitting note he asks her to orientation questions correctly but sometimes during the conversation had nonsensical answers such as when asking his current medications he replied COVID. He then goes talking attention regarding pain. At the time when I saw him in the morning is fairly alert cooperative. He is not sure what made him fall. Review of Systems 2 Constitutional: Constitutional: Reports no additional constitutional complaints Eyes: Eyes: Reports no additional eye complaints ENT: Reports system reviewed and no additional complaints, except as documented Cardiovascular: Cardiovascular: Reports no additional cardiovascular complaints Respiratory: Respiratory: Reports no additional respiratory complaints Gastrointestinal: Gastrointestinal: Reports no additional gastrointestinal complaints Genitourinary: Genitourinary: Reports no additional male genitourinary complaints Musculoskeletal: Musculoskeletal: Reports no additional musculoskeletal complaints Integumentary/Breasts: Comments: Multiple bruises the fall Neurologic: Reports system reviewed and no additional complaints, except as documented Comments: no history of episodes of unresponsiveness or stroke in the past Psychiatric: Psychiatric: Reports no additional psychiatric complaints PMFSH Past Medical History Medical History Chronic pain Alcohol abuse New onset a-fib Social History Social History Smoking status: Never smoker Alcohol intake: current Drinks per week: 21 Substance use: never Substance use type: does not use Lack of Transportation: No Lack of Food: Never True Current Housing: I Have Housing Concerned About Future Housing: No Difficulty Paying Gas/Electric Bills: No Difficulty Paying for Meds: No Currently Unemployed: No Education: Master's Degree or Higher Difficulty w/ Childcare or Family Care: No Spiritual care concerns: No Meds Home Medications and Allergies Home Medications ?Medication ?Instructions ?Recorded ?Confirmed ?Type trazodone 100 mg tablet 100 mg PO .HS 05/29/2505/29 History Allergies Allergy/AdvReac Type Severity Reaction Status Date / Time No Known Allergies Allergy Verified 05/29/25 17:41 Vital Signs Vital Signs - 24 hr 05/29/25 17:32 05/29/25 21:18 05/29/25 21:25 Temperature 98.4 F 99.4 F Pulse Rate 88 81 81 Pulse Rate [Bilateral Pedal (Dorsalis Pedis) Palpation] Respiratory Rate 16 18 18 Blood Pressure 154/88 H 159/78 H 123/80 Pulse Oximetry 97 99 95 Oxygen Delivery 05/29/25 22:00 05/29/25 22:01 05/29/25 23:25 Temperature Pulse Rate 68 76 76 Pulse Rate [Bilateral Pedal (Dorsalis Pedis) Palpation] Respiratory Rate 18 18 Blood Pressure 151/74 H Pulse Oximetry 98 98 Oxygen Delivery Room Air 05/29/25 23:31 05/29/25 23:40 05/30/25 00:00 Temperature 98.6 F Pulse Rate 69 67 Pulse Rate [Bilateral Pedal (Dorsalis Pedis) Palpation] 76 Respiratory Rate 20 Blood Pressure 113/55 L Pulse Oximetry 93 Oxygen Delivery 05/30/25 02:00 05/30/25 04:00 05/30/25 04:00 Temperature Pulse Rate 64 64 65 Pulse Rate [Bilateral Pedal (Dorsalis Pedis) Palpation] Respiratory Rate 20 Blood Pressure Pulse Oximetry 93 Oxygen Delivery Room Air 05/30/25 04:00 05/30/25 05:57 05/30/25 08:00 Temperature 98.2 F Pulse Rate 49 L 53 L Pulse Rate [Bilateral Pedal (Dorsalis Pedis) Palpation] Respiratory Rate 16 Blood Pressure 103/70 Pulse Oximetry 96 Oxygen Delivery Room Air 05/30/25 08:06 05/30/25 11:44 Temperature 96.6 F L 97.5 F L Pulse Rate 62 56 L Pulse Rate [Bilateral Pedal (Dorsalis Pedis) Palpation] Respiratory Rate 20 18 Blood Pressure 114/50 L 118/52 L Pulse Oximetry 95 96 Oxygen Delivery Exam 2 Const: General: cooperative, well developed and alert O rientation/consciousness: oriented to person, oriented to place and oriented to time Other: no aphasia or dysarthria it response to the question appropriately. Bruises were noted over his limbs. HENMT: Head: atraumatic Mouth: Yes oropharynx normal Eyes: Alignment and Position: position normal Pupils: Equal, round and reactive pupils present EOM: EOMs intact bilaterally Neck: Neck: supple Other: No carotid bruit Resp: Effort & Inspection: normal respiratory effort Cardio: Rate: regular rate Rhythm: regular rhythm Skin: Other: bruises noted on his limbs. Neuro: General: oriented to person, oriented to place and oriented to time Cranial nerves: Yes CN's II-XII intact bilaterally, Yes facial sensation intact/muscles of mastication intact, Yes Equal, round and reactive pupils present, Yes Bilaterally intact EOM present, Yes Nystagmus not present, Yes facial symmetry, Yes Midline tongue present, Yes Symmetric palate elevation present and Yes Ability to bilaterally elevate shoulders present Cognition (Neuro): normal cognition Speech: normal speech Gait exam (Neuro): Unable to assess gait Motor exam (neuro): 02/11 motor strength present throughout, Motor fasciculations not present, Normal motor muscle tone present throughout, Motor abnormalities not present and Tremors during motor activity present S ensory Exam: normal sensation Coordination: [id number] test normal and Normal rapid alternating movements of the distal upper extremity present (Neuro) Other: No distal sensory loss in the lower limbs. Deep tendon reflex was 0 to 1/4 lower limbs. No asymmetry was noted. Psych: Mental Status: mental status grossly normal Affect: normal affect Results Labs 05/30/25 03:39 05/30/25 03:39 Labs: Short CBC 05/29/25 05/30/25 Range/Units 17:48 03:39 WBC 14.6 H 10.4 H (4.5-10.0) K/mm3 Hgb 14.1 12.3 L (14.0-18.0) g/dL Hct 42.1 37.0 L (42.0-52.0) % Plt Count 224 182 (150-375) k/mm3 BMP 05/29/25 05/30/25 17:48 03:39 Sodium 136 L 135 L Potassium 3.9 3.4 Chloride 104 108 H Carbon Dioxide 20 L 20 L BUN 13 10 Creatinine 0.88 0.79 Glucose 109 83 Calcium 9.4 8.3 L Cardiac Enzymes 05/29/25 Range/Units 17:48 Total Creatine Kinase 364 H (55-170) U/L Liver Function 05/29/25 05/30/25 Range/Units 17:48 03:39 Total Bilirubin 0.7 0.7 (0.2-1.3) mg/dL AST 33 40 (17-59) U/L ALT 19 15 (6-50) U/L Alkaline Phosphatase 71 52 (38-126) U/L Albumin 4.4 3.3 L (3.5-5.1) g/dL Urine 05/29/25 Range/Units 17:48 Urine Color Yellow (Yellow) Urine Appearance Cloudy H (Clear) Urine pH 5.0 (5.0-9.0) Ur Specific [place] 1.022 (1.001-1.035) Urine Protein 1+ H (Negative) mg/dL Urine Glucose (UA) Negative (Negative) mg/dL
[2025-05-30] MEDS: PERFLUTREN LIPID MICROSPHERES 1.5 ML VIAL DILUTED TO 10 ML TOTAL VOLUME IV PUSH (12:47)
--- NOTE | 2025-05-30 12:47 | IVDEFINITY ---
Prior to administration of IV Definity the patient was educated on the risks and benefits of the imaging enhancing agent including potential adverse side effects. The patient verbalized understanding. Allergies were verified. No exclusion criteria were identified and at least one of the following inclusion criteria were met: 1) physician request, 2) patient technically difficult to image (per the [place] [employer]ocardi[employer] guidelines of two or more segments not discernable within the apical view), or 3) questionable left ventricular function. ?
--- NOTE | 2025-05-30 13:25 | PC.NURSE ---
To Radiology per [stretcher ]
--- NOTE | 2025-05-30 17:06 | P.PNIM_ITS ---
Progress Note: A&P Assessment and Plan (1) New onset a-fib: Code(s): I48.91 - Unspecified atrial fibrillation Status: Acute Assessment and Plan: Controlled Started on Metoprolol and Lovenox TSH wnl ECHO pending cardiology consulted (2) Fall: Qualifiers: Encounter type: initial encounter Qualified Code(s): W19.XXXA - Unspecified fall, initial encounter Code(s): W19.XXXA - Unspecified fall, initial encounter Status: Acute Assessment and Plan: * Found down on floor, unknown length of time * CK 364 continue overt rhabdomyolysis * Continue to hydrate with normal saline at 125 mL/hour * Fall precautions * Imaging of CT head, CT C-spine and CT L-spine without acute abnormalities. Spondylosis identified on CT lumbar spine. (3) Altered mental status: Qualifiers: Altered mental status type: unspecified Qualified Code(s): R41.82 - Altered mental status, unspecified Code(s): R41.82 - Altered mental status, unspecified Status: Acute Assessment and Plan: * Etiology uncertain -Wernicke's encephalopathy (??) * Fall precautions * Check B1 and B12 levels * Start daily thiamine and folic acid * MR Brain and Brainstem with and without * Carotid dopplers no significant stenosis * ECHO, EEG pending * TSH wnl * PRN Ativan * Neuro following (4) Alcohol abuse: Code(s): F10.10 - Alcohol abuse, uncomplicated Status: Chronic Assessment and Plan: * CIWA scoring, * PRN Ativan * Fall Precautions * Normal ETOH level (5) Chronic pain: Code(s): G89.29 - Other chronic pain Status: Chronic Assessment and Plan: * Morphine 2 mg Q2 hrs ordered for chronic pain. Plan B12 deficiency B12 256 started on B12 1000mcg daily x 3 days then weekly MMA and Homocysteine ordered Subjective Date/time seen: 05/30/25 17:06 Interval history: COmfortable at bedside Review of Systems Review of Systems: ROS unobtainable: Yes unobtainable due to medical condition Exam Const: General: uncomfortable Other: Elderly male patient lying supine at this time and complaining of pain all over. HENMT: Face/Nose/Sinus: Normal nares present Mouth: Yes dry mucous membranes Eyes: General: appearance normal, both eyes and all related structures Sclera: sclerae normal Pupils: Equal, round and reactive pupils present EOM: EOMs intact bilaterally Neck: Neck: supple and no JVD Lymphatic: lymphadenopathy not noted Resp: Effort & Inspection: abnormal respiratory effort (Diminished effort, will not follow commands) Auscultation: diminished lung sounds bilateral (Bases) Cardio: Rate: regular rate Rhythm: regular rhythm Heart sounds: no gallops, no murmurs and no rubs GI: Auscultation: normal bowel sounds Skin: General skin exam: normal color, no rashes or lesions noted and no erythema Wounds: no wounds Neuro: Cranial nerves: Yes Equal, round and reactive pupils present Speech: normal speech Motor exam (neuro): Abnormal motor strength present (Gener alized, nonfocal weakness) Sensory Exam: normal sensation Extrem: General: normal to inspection, no edema and no pedal edema Other: Freely and equally moving all extremities well without deficit. Psych: Mental Status: mental status grossly abnormal (AMS - Answers orientation questions correctly then confused.) Affect: No normal affect and Anxious affect present Other: Pt's conversations trail off and at times are nonsensical. Objective Data Vital Signs Vital Signs: Vital Signs - 24 hr 05/29/25 17:32 05/29/25 21:18 05/29/25 21:25 Temperature 98.4 F 99.4 F Pulse Rate 88 81 81 Pulse Rate [Bilateral Pedal (Dorsalis Pedis) Palpation] Respiratory Rate 16 18 18 Blood Pressure 154/88 H 159/78 H 123/80 Pulse Oximetry 97 99 95 Oxygen Delivery 05/29/25 22:00 05/29/25 22:01 05/29/25 23:25 Temperature Pulse Rate 68 76 76 Pulse Rate [Bilateral Pedal (Dorsalis Pedis) Palpation] Respiratory Rate 18 18 Blood Pressure 151/74 H Pulse Oximetry 98 98 Oxygen Delivery Room Air 05/29/25 23:31 05/29/25 23:40 05/30/25 00:00 Temperature 98.6 F Pulse Rate 69 67 Pulse Rate [Bilateral Pedal (Dorsalis Pedis) Palpation] 76 Respiratory Rate 20 Blood Pressure 113/55 L Pulse Oximetry 93 Oxygen Delivery 05/30/25 02:00 05/30/25 04:00 05/30/25 04:00 Temperature Pulse Rate 64 64 65 Pulse Rate [Bilateral Pedal (Dorsalis Pedis) Palpation] Respiratory Rate 20 Blood Pressure Pulse Oximetry 93 Oxygen Delivery Room Air 05/30/25 04:00 05/30/25 05:57 05/30/25 08:00 Temperature 98.2 F Pulse Rate 49 L 53 L Pulse Rate [Bilateral Pedal (Dorsalis Pedis) Palpation] Respiratory Rate 16 Blood Pressure 103/70 Pulse Oximetry 96 Oxygen Delivery Room Air 05/30/25 08:00 05/30/25 08:06 05/30/25 10:00 Temperature 96.6 F L Pulse Rate 50 L 62 64 Pulse Rate [Bilateral Pedal (Dorsalis Pedis) Palpation] Respiratory Rate 20 Blood Pressure 114/50 L Pulse Oximetry 95 Oxygen Delivery 05/30/25 11:44 05/30/25 12:00 05/30/25 12:00 Temperature 97.5 F L Pulse Rate 56 L 62 51 L Pulse Rate [Bilateral Pedal (Dorsalis Pedis) Palpation] Respiratory Rate 18 20 Blood Pressure 118/52 L Pulse Oximetry 96 96 Oxygen Delivery Room Air 05/30/25 14:00 05/30/25 16:00 05/30/25 16:00 Temperature Pulse Rate 78 65 Pulse Rate [Bilateral Pedal (Dorsalis Pedis) Palpation] Respiratory Rate Blood Pressure Pulse Oximetry Oxygen Delivery Room Air 05/30/25 16:14 Temperature 98.1 F Pulse Rate 61 Pulse Rate [Bilateral Pedal (Dorsalis Pedis) Palpation] Respiratory Rate 20 Blood Pressure 135/50 L Pulse Oximetry 96 Oxygen Delivery Intake/Output Intake/Output: Intake & Output 05/27/25 05/28/25 05/29/25 05/30/25 23:59 23:59 23:59 23:59 Intake Total 2000 1540 Output Total 150 1050 Balance 1850 490 Meds/Results Medications: Active Medications Generic Name Dose Route Start Last Admin Trade Name Freq PRN Reason Stop Dose Admin Diazepam 5 mg 05/30/25 11:18 Diazepam Inj (*Crx) 10 Mg/2 Ml Syringe IV PUSH Q6H PRN Anxiety Folic Acid 1 mg 05/30/25 09:00 05/30/25 11:11 Folic Acid 1 Mg Tablet PO 1 mg DAILY MAXI Administration Sodium Chloride 1,000 mls @ 125 mls/hr 05/29/25 20:00 05/30/25 06:39 Normal Saline Iv IV CONT 125 mls/hr .Q8H MAXI Administration Morphine Sulfate 2 mg 05/29/25 19:57 05/29/25 23:20 Morphine Sulfate (*Crx) 2 Mg/Ml Inj IV PUSH 2 mg Q2H PRN Administration Pain Rated 7-10 Ondansetron HCl 4 mg 05/29/25 19:57 Ondansetron Inj 4 Mg/2 Ml Vial IV PUSH Q4H PRN Nausea Thiamine HCl 100 mg 05/30/25 09:00 05/30/25 11:11 Thiamine Hcl 100 Mg Tablet PO 100 mg QAM MAXI Administration Trazodone HCl 100 mg 05/29/25 22:30 05/29/25 22:39 Trazodone Hcl 50 Mg Tablet PO 100 mg HS MAXI Administration Radiology Results: ITS Impressions Head CT 05/29/25 18:29 IMPRESSION: 1. No acute intracranial abnormality. Cervical Spine CT 05/29/25 18:31 IMPRESSION: 1. No acute abnormality of the cervical spine. Lumbar Spine CT 05/29/25 19:13 IMPRESSION: 1. No acute abnormality of the lumbar spine. 2: Severe lumbar spondylosis with levocurvature. Carotid Doppler Study 05/29/25 22:50 IMPRESSION: 1. 50-69% stenosis in the right internal carotid artery by peak systolic velocity criteria. 2. Less than 50% stenosis in the left internal carotid artery. Elevated peak systolic velocity within the external carotid arteries bilaterally Brain MRI 05/30/25 14:13 IMPRESSION: 1. Normal aging brain with moderate scattered calcific white matter T2 hyperintensity consistent with chronic small vessel ischemic disease. No acute intracranial process or abnormally enhancing brain lesions. Labs Labs: Laboratory Results - last 24 hr 05/29/25 05/29/25 05/29/25 17:48 18:10 18:32 WBC 14.6 H RBC 4.52 L Hgb 14.1 Hct 42.1 MCV 93.1 MCH 31.2 MCHC 33.5 RDW 13.9 Plt Count 224 MPV 9.7 Immature Gran % (Auto) 0.3 Neut % (Auto) 89.9 H Lymph % (Auto) 4.4 L [place] % (Auto) 5.3 Eos % (Auto) 0.0 Baso % (Auto) 0.1 L Lymph # (Auto) 0.64 L [place] # (Auto) 0.8 H Eos # (Auto) 0.0 Baso # (Auto) 0.0 Abs Immat Gran (auto) 0.05 H Absolute Neuts (auto) 13.2 H Absolute Nucleated RBC 0.000 Nucleated RBC % 0.0 PT 14.2 INR 1.1 APTT 29.0 Sodium 136 L Potassium 3.9 Chloride 104 Carbon Dioxide 20 L Anion Gap 12 BUN 13 Creatinine 0.88 Estim Creat Clear Calc 70 Estimated GFR > 60 Glucose 109 Lactic Acid 1.2 Calcium 9.4 Magnesium Total Bilirubin 0.7 AST 33 ALT 19 Alkaline Phosphatase 71 Ammonia Total Creatine Kinase 364 H Total Protein 7.2 Albumin 4.4 Lipase Vitamin B12 256.0 TSH (Reflex) Urine Color Yellow Urine Appearance Cloudy H Urine pH 5.0 Ur Specific [place] 1.022 Urine Protein 1+ H Urine Glucose (UA) Negative Urine Ketones 3+ H Ur Blood (Man) Negative Urine Nitrate Negative Urine Bilirubin Negative Urine Urobilinogen 0.2 Leukocyte Esterase Rfl Negative Urine RBC 0-2 Urine WBC 0-5 Ur Squamous Epith Cells None seen Urine Bacteria None seen Urine Casts 0-2 Ethyl Alcohol < 10 Influenza A (RT-PCR) Negative Influenza B (RT-PCR) Negative RSV (RT-PCR) Negative SARS-CoV-2 RNA (RT-PCR) Negative 05/29/25 05/30/25 20:04 03:39 WBC 10.4 H RBC 3.89 L Hgb 12.3 L Hct 37.0 L MCV 95.1 MCH 31.6 MCHC 33.2 RDW 14.0 Plt Count 182 MPV 9.9 Immature Gran % (Auto) 0.3 Neut % (Auto) 80.3 H Lymph % (Auto) 10.5 L [place] % (Auto) 8.5 Eos % (Auto) 0.1 Baso % (Auto) 0.3 Lymph # (Auto) 1.09 [place] # (Auto) 0.9 H Eos # (Auto) 0.0 Baso # (Auto) 0.0 Abs Immat Gran (auto) 0.03 Absolute Neuts (auto) 8.4 H Absolute Nucleated RBC 0.000 Nucleated RBC % 0.0 PT INR APTT Sodium 135 L Potassium 3.4 Chloride 108 H Carbon Dioxide 20 L Anion Gap 7 BUN 10 Creatinine 0.79 Estim Creat Clear Calc 78 Estimated GFR > 60 Glucose 83 Lactic Acid Calcium 8.3 L Magnesium 2.1 Total Bilirubin 0.7 AST 40 ALT 15 Alkaline Phosphatase 52 Ammonia < 9 L Total Creatine Kinase Total Protein 5.7 L Albumin 3.3 L Lipase 29 Vitamin B12 TSH (Reflex) 1.750 Urine Color Urine Appearance Urine pH Ur Specific [place] Urine Protein Urine Glucose (UA) Urine Ketones Ur Blood (Man) Urine Nitrate Urine Bilirubin Urine Urobilinogen Leukocyte Esterase Rfl Urine RBC Urine WBC Ur Squamous Epith Cells Urine Bacteria Urine Casts Ethyl Alcohol Influenza A (RT-PCR) Influenza B (RT-PCR) RSV (RT-PCR) SARS-CoV-2 RNA (RT-PCR) Quality VTE Prophylaxis VTE prophylaxis: pharmacologic ordered
[2025-05-30] MEDS: METOPROLOL TARTRATE 12.5 MG TABLET PO (20:34)
[2025-05-31] VITALS (10 sets, daily range): BP systolic 127–158; BP diastolic 46–63; PULSE 38–92; RESP 16–20; TEMP 36.7–36.9; O2SAT 96–99
[2025-05-31 04:16] LABS: Hematocrit 36.3 % (42.0-52.0); Hemoglobin 12.0 g/dL (14.0-18.0); Immature Granulocyte Percent A 0.2 % (0-0.5); Lymphocytes Absolute Auto 1.17 K/mm3 (0.9-3.2); Mean Corpuscular HGB Conc 33.1 g/dl (32-36); Mean Corpuscular Hemoglobin 31.0 pg (26-34); Mean Corpuscular Volume 93.8 fl (80-100); Nucleated Red Blood Cells Absolute Auto 0.000 K/mm3 (0.0-0.012); Nucleated Red Blood Cells Perc 0.0 % (0.0-0.2); Platelet Count Result 177 k/mm3 (150-375); Red Blood Count 3.87 M/mm3 (4.6-6.20); White Blood Count 8.3 K/mm3 (4.5-10.0)
[2025-05-31 04:26] LABS: Alanine Aminotransferase 19 U/L (6-50); Albumin Level 3.4 g/dL (3.5-5.1); Alkaline Phosphatase 55 U/L (38-126); Anion Gap 4 mmol/L (4-12); Aspartate Amino Transferase 49 U/L (17-59); Bilirubin,Total 0.6 mg/dL (0.2-1.3); Blood Urea Nitrogen 9 mg/dL (9-20); Calcium 8.6 mg/dL (8.4-10.2); Carbon Dioxide 22 mmol/L (22-30); Chloride 108 mmol/L (98-107); Estimated CRCL calculation 86 ml/min; Estimated Glomerular Filt Rate > 60; Glucose 88 mg/dL (65-110); Magnesium 2.4 mg/dL (1.6-2.3); Potassium 3.7 mmol/L (3.4-5.0); Sodium 134 mmol/L (137-145); Total Protein 5.6 g/dL (6.3-8.2)
[2025-05-31] MEDS: FOLIC ACID 1 MG TABLET PO (09:29)
[2025-05-31] MEDS: THIAMINE HCL 100 MG TABLET PO (09:29)
[2025-05-31] MEDS: METOPROLOL TARTRATE 12.5 MG TABLET PO (09:30)
--- NOTE | 2025-05-31 15:09 | P.PNIM_ITS ---
Progress Note: A&P Assessment and Plan (1) New onset a-fib: Code(s): I48.91 - Unspecified atrial fibrillation Status: Acute Assessment and Plan: AFIb ruled out. re-examined EKG and no afib noted TSH wnl ECHO normal EF with no regional wall motion abnormalities discontinue Lovenox and metoprolol (2) Fall: Qualifiers: Encounter type: initial encounter Qualified Code(s): W19.XXXA - Unspecified fall, initial encounter Code(s): W19.XXXA - Unspecified fall, initial encounter Status: Acute Assessment and Plan: * Found down on floor, unknown length of time * CK 364 continue overt rhabdomyolysis * Continue to hydrate with normal saline at 125 mL/hour * Fall precautions * Imaging of CT head, CT C-spine and CT L-spine without acute abnormalities. Spondylosis identified on CT lumbar spine. (3) Altered mental status: Qualifiers: Altered mental status type: unspecified Qualified Code(s): R41.82 - Altered mental status, unspecified Code(s): R41.82 - Altered mental status, unspecified Status: Acute Assessment and Plan: * Etiology uncertain -Wernicke's encephalopathy (??) * Fall precautions * Check B1 and B12 levels * Start daily thiamine and folic acid * MR Brain and Brainstem with and without * Carotid dopplers no significant stenosis * ECHO showed normal EF, EEG pending * TSH wnl * PRN Ativan * Neuro following (4) Alcohol abuse: Code(s): F10.10 - Alcohol abuse, uncomplicated Status: Chronic Assessment and Plan: * CIWA scoring, * PRN Ativan * Fall Precautions * Normal ETOH level (5) Chronic pain: Code(s): G89.29 - Other chronic pain Status: Chronic Assessment and Plan: * Morphine 2 mg Q2 hrs ordered for chronic pain. Plan B12 deficiency B12 256 started on B12 1000mcg daily x 3 days then weekly MMA and Homocysteine ordered Awaiting EEG PT/OT eval noted Subjective Date/time seen: 05/31/25 15:09 Interval history: Comfortable at bedside Review of Systems Review of Systems: ROS unobtainable: Yes unobtainable due to medical condition Exam Const: General: uncomfortable Other: Elderly male patient lying supine at this time and complaining of pain all over. HENMT: Face/Nose/Sinus: Normal nares present Mouth: Yes dry mucous membranes Eyes: General: appearance normal, both eyes and all related structures Sclera: sclerae normal Pupils: Equal, round and reactive pupils present EOM: EOMs intact bilaterally Neck: Neck: supple and no JVD Lymphatic: lymphadenopathy not noted Resp: Effort & Inspection: abnormal respiratory effort (Diminished effort, will not follow commands) Auscultation: diminished lung sounds bilateral (Bases) Cardio: Rate: regular rate Rhythm: regular rhythm Heart sounds: no gallops, no murmurs and no rubs GI: Auscultation: normal bowel sounds Skin: General skin exam: normal color, no rashes or lesions noted and no erythema Wounds: no wounds Neuro: Cranial nerves: Yes Equal, round and reactive pupils present Speech: normal speech Motor exam (neuro): Abnormal motor strength present (Generalized, nonfocal weakness) Sensory Exam: normal sensation Extrem: General: normal to inspection, no edema and no pedal edema Other: Freely and equally moving all extremities well without deficit. Psych: Mental Status: mental status grossly abnormal (AMS - Answers orientation questions correctly then confused.) Affect: No normal affect and Anxious affect present Other: Pt's conversations trail off and at times are nonsensical. Objective Data Vital Signs Vital Signs: Vital Signs - 24 hr 05/30/25 16:00 05/30/25 16:00 05/30/25 16:14 Temperature 98.1 F Pulse Rate 65 61 Pulse Rate [Bilateral Pedal (Dorsalis Pedis) Palpation] Respiratory Rate 20 Blood Pressure 135/50 L Pulse Oximetry 96 Oxygen Delivery Room Air 05/30/25 18:00 05/30/25 20:00 05/30/25 20:00 Temperature 98.2 F Pulse Rate 78 83 Pulse Rate [Bilateral Pedal (Dorsalis Pedis) Palpation] 99 Respiratory Rate 16 Blood Pressure 133/69 Pulse Oximetry 96 Oxygen Delivery 05/30/25 20:00 05/30/25 20:00 05/30/25 20:34 Temperature Pulse Rate 46 L 70 Pulse Rate [Bilateral Pedal (Dorsalis Pedis) Palpation] Respiratory Rate Blood Pressure Pulse Oximetry Oxygen Delivery Room Air 05/30/25 22:00 05/31/25 00:00 05/31/25 00:00 Temperature 98.2 F Pulse Rate 43 L 61 Pulse Rate [Bilateral Pedal (Dorsalis Pedis) Palpation] 41 L Respiratory Rate 18 Blood Pressure 127/46 L Pulse Oximetry 97 Oxygen Delivery 05/31/25 00:00 05/31/25 00:00 05/31/25 02:00 Temperature Pulse Rate 41 L 38 L Pulse Rate [Bilateral Pedal (Dorsalis Pedis) Palpation] Respiratory Rate Blood Pressure Pulse Oximetry Oxygen Delivery Room Air 05/31/25 04:00 05/31/25 04:00 05/31/25 04:00 Temperature Pulse Rate 50 L Pulse Rate [Bilateral Pedal (Dorsalis Pedis) Palpation] 50 L Respiratory Rate Blood Pressure Pulse Oximetry Oxygen Delivery Room Air 05/31/25 04:00 05/31/25 06:00 05/31/25 08:00 Temperature 98.5 F 98.2 F Pulse Rate 67 50 L 65 Pulse Rate [Bilateral Pedal (Dorsalis Pedis) Palpation] Respiratory Rate 18 20 Blood Pressure 135/50 L 152/61 H Pulse Oximetry 99 97 Oxygen Delivery 05/31/25 08:00 05/31/25 08:00 05/31/25 08:00 Temperature Pulse Rate 92 Pulse Rate [Bilateral Pedal (Dorsalis Pedis) Palpation] 50 L Respiratory Rate Blood Pressure 158/63 H Pulse Oximetry Oxygen Delivery Room Air 05/31/25 09:30 05/31/25 10:00 05/31/25 11:37 Temperature Pulse Rate 70 57 L Pulse Rate [Bilateral Pedal (Dorsalis Pedis) Palpation] Respiratory Rate Blood Pressure Pulse Oximetry Oxygen Delivery Room Air 05/31/25 11:56 05/31/25 12:00 05/31/25 12:00 Temperature 98.1 F Pulse Rate 47 L 56 L Pulse Rate [Bilateral Pedal (Dorsalis Pedis) Palpation] Respiratory Rate 16 Blood Pressure 158/63 H Pulse Oximetry 96 Oxygen Delivery Room Air 05/31/25 12:00 Temperature Pulse Rate Pulse Rate [Bilateral Pedal (Dorsalis Pedis) Palpation] 50 L Respiratory Rate Blood Pressure 158/63 H Pulse Oximetry Oxygen Delivery Intake/Output Intake/Output: Intake & Output 05/28/25 05/29/25 05/30/25 05/31/25 23:59 23:59 23:59 23:59 Intake Total 1999 1930 1080 Output Total 150 1050 Balance 3587 596 [id number] Meds/Results Medications: Active Medications Generic Name Dose Route Start Last Admin Trade Name Freq PRN Reason Stop Dose Admin Diazepam 5 mg 05/30/25 11:18 Diazepam Inj (*Crx) 10 Mg/2 Ml Syringe IV PUSH Q6H PRN Anxiety Folic Acid 1 mg 05/30/25 09:00 05/31/25 09:29 Folic Acid 1 Mg Tablet PO 1 mg DAILY MAXI Administration Metoprolol Tartrate 12.5 mg 05/30/25 21:00 05/31/25 09:30 Metoprolol Tartrate 12.5 Mg Tablet PO 12.5 mg Q12HR MAXI Administration Morphine Sulfate 2 mg 05/29/25 19:57 05/29/25 23:20 Morphine Sulfate (*Crx) 2 Mg/Ml Inj IV PUSH 2 mg Q2H PRN Administration Pain Rated 7-10 Ondansetron HCl 4 mg 05/29/25 19:57 Ondansetron Inj 4 Mg/2 Ml Vial IV PUSH Q4H PRN Nausea Thiamine HCl 100 mg 05/30/25 09:00 05/31/25 09:29 Thiamine Hcl 100 Mg Tablet PO 100 mg QAM MAXI Administration Trazodone HCl 100 mg 05/29/25 22:30 05/30/25 20:34 Trazodone Hcl 50 Mg Tablet PO 100 mg HS MAXI Administration Radiology Results: ITS Impressions Head CT 05/29/25 18:29 IMPRESSION: 1. No acute intracranial abnormality. Cervical Spine CT 05/29/25 18:31 IMPRESSION: 1. No acute abnormality of the cervical spine. Lumbar Spine CT 05/29/25 19:13 IMPRESSION: 1. No acute abnormality of the lumbar spine. 2: Severe lumbar spondylosis with levocurvature. Carotid Doppler Study 05/29/25 22:50 IMPRESSION: 1. 50-69% stenosis in the right internal carotid artery by peak systolic velocity criteria. 2. Less than 50% stenosis in the left internal carotid artery. Elevated peak systolic velocity within the external carotid arteries bilaterally Brain MRI 05/30/25 14:13 IMPRESSION: 1. Normal aging brain with moderate scattered calcific white matter T2 hyperintensity consistent with chronic small vessel ischemic disease. No acute intracranial process or abnormally enhancing brain lesions. Labs Labs: Laboratory Results - last 24 hr 05/30/25 05/31/25 10:11 03:49 WBC 8.3 RBC 3.87 L Hgb 12.0 L Hct 36.3 L MCV 93.8 MCH 31.0 MCHC 33.1 RDW 13.9 Plt Count 177 MPV 9.7 Immature Gran % (Auto) 0.2 Neut % (Auto) 74.4 H Lymph % (Auto) 14.2 L Crisp % (Auto) 9.0 H Eos % (Auto) 1.7 Baso % (Auto) 0.5 Lymph # (Auto) 1.17 Crisp # (Auto) 0.7 H Eos # (Auto) 0.1 Baso # (Auto) 0.0 Abs Immat Gran (auto) 0.02 Absolute Neuts (auto) 6.2 Absolute Nucleated RBC 0.000 Nucleated RBC % 0.0 Sodium 134 L Potassium 3.7 Chloride 108 H Carbon Dioxide 22 Anion Gap 4 BUN 9 Creatinine 0.71 Estim Creat Clear Calc 86 Estimated GFR > 60 Glucose 88 Calcium 8.6 Magnesium 2.4 H Total Bilirubin 0.6 AST 49 ALT 19 Alkaline Phosphatase 55 Total Protein 5.6 L Albumin 3.4 L Homocysteine 16.2 Quality VTE Prophylaxis VTE prophylaxis: pharmacologic ordered
--- NOTE | 2025-06-01 15:55 | WPDNEUROLOGY ---
Neurology EEG Report General Information Date of Study: 05/31/25 TEST Electroencephalogram DIAGNOSIS the patient was found on the floor and unable to get up for hours. CONDITION OF RECORDING Bedside recording EEG NUMBER [id number] CLINICAL HISTORY 80-year-old with history of legs giving out and he could not get up from the floor for several hours. There is also history of alcohol drinking. EEG DESCRIPTION Background activity consists of poorly organized mixed frequency activity. There is no significant anteroposterior gradient. Muscle tension artifacts appeared intermittently I the patient was described as being agitated. Did not progress to stage 2 sleep. Hyperventilation or photic stimulation were not performed. IMPRESSION This is an essentially normal EEG however muscle tension artifacts were seen during significant part of the recording which may limit identification of focal abnormalities. EKG tracing shows significant supraventricular and ventricular ectopic beats. Further cardiac evaluation is recommended.
[2025-06-06 16:08] LABS: Vit. B1, Whole Blood 102.0 nmol/L (66.5-200.0)
== END 2025-05-31 14:59 | disposition left against medical advice (07) | DRG 641 ==
LOC: ANHED 19:53 → ANHIMU 21:21
PROVIDERS: Nurse Practitioner Adult Health; Admitting Provider Internal Medicine; Emergency Provider Family Medicine; PCP Internal Medicine; Visit Provider Internal Medicine
DX: E51.2 Wernicke's encephalopathy (principal); W19.XXXA Unspecified fall, initial encounter; F10.10 Alcohol abuse, uncomplicated; G89.29 Other chronic pain; E53.8 Deficiency of other specified B group vitamins
CPT/HCPCS: 36415; 70450; 70553; 72125; 72131; 80053; 81001; 82077; 82140; 82550; 82607; 83090; 83605; 83690; 83735; 83921; 84425; 84443; 85025; 85610; 85730; 87637; 93005; 93880; 95816; 96361; 96374; 96375; 97161; 97165; 99285; A9270; A9577; C8929; J1650; J2060; J2270; J7030; Q9957